=== PATIENT | female | born 1995 | race Caucasian/White ===

== ENCOUNTER 2017-06-21 20:55 | Emergency (ER) | payer SELFPAY ==
[~2017-06-21] VITALS: Ht 175.3 cm; Wt 144.4 kg
[~2017-06-21 20:55] MED LIST: FLOVENT DISKUS1 DISK IH; PROAIR HFA8.5 GM IH; XANAX0.25 MG PO
[2017-06-21] MEDS ORDERED: PERCOCET 5/31 TABLET PO (22:45)
[2017-06-21 23:05] VITALS: BP 149/89
== END 2017-06-21 23:05 | disposition home or self-care (01) ==
LOC: EME 20:55
PROC: 2W3SX1Z Immobilization of Right Foot using Splint (ICD-10-PCS; principal; 2017-06-21)
DX: S92.001A Unspecified fracture of right calcaneus, initial encounter for closed fracture (principal); X50.1XXA Overexertion from prolonged static or awkward postures, initial encounter; Y92.810 Car as the place of occurrence of the external cause
CPT/HCPCS: 73610; 99281; 99284